=== PATIENT | female | born 1970 | race Caucasian/White ===

== ENCOUNTER 2022-02-28 17:42 | Emergency (ER) | payer OTHER, SELFPAY ==
--- NOTE | ~2022-02-28 | XR_ITS ---
XR elbow LT min 3V 02/28/2022 18:39 INDICATION: Left elbow pain PROCEDURE: 4 views left elbow COMPARISON: No prior studies for comparison. FINDINGS: Fracture, dislocation or subluxation is not identified. No significant joint effusion. Ther e is mild soft tissue swelling dorsal to the elbow. No foreign bodies are identified. IMPRESSION: 1: NO ACUTE BONE OR JOINT ABNORMALITY IDENTIFIED. Reviewed, dictated and finalized at location A.
[2022-02-28 17:52] VITALS: BP 96/63; PULSE 82; RESP 16; TEMP 36.2; O2SAT 99
--- NOTE | 2022-02-28 18:45 | ED.UPPEXIN ---
HPI - Extremity Injury (Upper) General Chief Complaint: Extremity Injury, Upper Stated Complaint: left elbow swelling Time Seen by Provider: 02/28/22 18:45 History of Present Illness HPI narrative: Patient is a 51-year-old female complaining of left elbow swelling x2 weeks. 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 Patient denies any injury to the area. Patient denies any fever or chills. Related Data Home Medications Medication Instructions Recorded Confirmed No Home Medications 09/08/19 09/08/19 Allergies Allergy/AdvReac Type Severity Reaction Status Date / Time midazolam [From Versed] Allergy Unknown Verified 02/28/22 18:37 Review of Systems Review of Systems: Per HPI All systems reviewed & are unremarkable except as noted in HPI and below PMFSH Past Medical History Medical History Left knee pain Lumbar stenosis Family History Family History Unknown Cardiovascular disease Diabetes mellitus Hypertension Social History Social History Smoking packs per day: 1 Smoking cigarettes per day: 20.0 Smoking status: Current every day smoker Alcohol intake: never Exam Const: General: cooperative, healthy appearing, comfortable, no acute distress, well developed, alert and awake; No confusion Orientation/consciousness: oriented to person, oriented to place, oriented to time, patient oriented x3 and No confusion Limitations: no limitations HENMT: Head: normal to inspection, normocephalic and atraumatic Ears: hearing grossly normal bilaterally General nose exam: Normal external nose present, Normal nares present and No nasal discharge present Face and sinus: normal facial exam Mouth: Yes Normal oral and palatal mucosa present and Yes lip normal Eyes: General: appearance normal, both eyes and all related structures Neck: Neck: normal visual inspection Resp: Effort & Inspection: normal respiratory effort, able to speak in complete sentences, no respiratory distress and not tachypneic GI: Inspection: normal to inspection Skin: General skin exam: normal color, no rashes or lesions noted, elasticity normal and turgor normal Neuro: General: oriented to person, oriented to place, oriented to time, patient oriented x3, tone normal, moves all extremities, Normal light touch and pain sensation and No confusion Speech: No Abnormal speech present Sensory Exam: No Sensory deficit (Neuro) Extrem: General: full ROM and capillary refill normal Other: Negative for any deformity. Erythematous, swollen left elbow joint, full range of motion, neurovascular is intact. Psych: Appearance: grossly normal and well kempt Mental Status: mental status grossly normal Speech and movement: Normal speech and movement present Affect: normal affect Attitude: cooperative Thought process: Normal thought process present Thought content: Yes Normal thought content present Insight: Good insight present (Psych) Judgement: Good judgement present (Psych) Course Vital Signs Vital signs: Vital Signs Temperature 36.2 C L 02/28/22 17:52 Pulse Rate 82 02/28/22 17:52 Respiratory Rate 16 02/28/22 17:52 Blood Pressure 96/63 L 02/28/22 17:52 Pulse Oximetry 99 02/28/22 17:52 Oxygen Delivery Room Air 02/28/22 17:52 Temperature 36.2 C L 02/28/22 17:52 Pulse Rate 82 02/28/22 17:52 Respiratory Rate 16 02/28/22 17:52 Blood Pressure 96/63 L 02/28/22 17:52 Pulse Oximetry 99 02/28/22 17:52 Oxygen Delivery Room Air 02/28/22 17:52 Discharge Plan Discharge Clinical Impression: Elbow tendonitis Patient Disposition: Home, Self-Care Condition: Stable Instructions: Tennis Elbow (ED) Additional Instructions: Follow-up with your orthopedic doctor next week Prescriptions: No Actio
[2022-02-28] MEDS: KETOROLAC 30 MG/ML VIAL (*BKC) IM (19:32)
== END 2022-02-28 19:35 | disposition home or self-care (01) ==
LOC: ANHED 19:06
PROVIDERS: Emergency Provider Emergency Medicine; PCP Nurse Practitioner Family
DX: M77.9 Enthesopathy, unspecified (principal); F17.210 Nicotine dependence, cigarettes, uncomplicated
CPT/HCPCS: 73080; 96372; 99283; J1885

== ENCOUNTER 2022-05-28 11:30 | Outpatient (CLI) | payer OTHER, SELFPAY ==
--- NOTE | ~2022-05-28 | XR_ITS ---
XR chest 2V 05/28/2022 11:46 Indication: Dyspnea. Procedure: 2 view chest Comparison: No prior studies for comparison. Findings: Heart size normal. No focal air space disease, pulmonary edema, pleural effusion or suspect ed pneumothorax. There are calcified granulomas of the lung parenchyma. The lungs are hyperinflated w hich is consistent with, but not diagnostic of chronic obstructive pulmonary disease. There are in nu merable bilateral calcified granulomas. Impression: 1: No acute cardiopulmonary disease. Reviewed, dictated and finalized at location A. Impression: 1: No acute cardiopulmonary disease.
== END 2022-05-28 11:31 | disposition home or self-care (01) ==
PROVIDERS: PCP Nurse Practitioner Family; Visit Provider Nurse Practitioner Family
DX: R09.89 Other specified symptoms and signs involving the circulatory and respiratory systems (principal)
CPT/HCPCS: 71046

== ENCOUNTER 2022-07-03 08:34 | Outpatient (CLI) | payer OTHER, SELFPAY ==
--- NOTE | 2022-07-03 | ECHO_ITS ---
Patient Info Name: Deedee Rosenthal Age: 52 years : 1970 Gender: Female Ht: 69 in Wt: 145 lbs BSA: 1.79 m2 HR: 58 bpm BP: 107 / 80 mmHg Heart Rhythm: Sinus Rhythm Exam Date: 07/03/2022 9:17 AM Exam Location: [facility] Pulmonary Patient Status: Outpatient Admit Date: 07/03/2022 Staff Ordering Physician: PablitoGato MD Mock Up Assembler: Miguel Sanchez RDCS Attending Provider: Pablito, Gato Mejia MD Referring Physician: Pablito BARCENAS; Exam Type: CA echo doppler color flow Study Info Indications - dyspnea on exertion Complete two-dimensional, color flow and Doppler transthoracic echocardiogram is performed. Summary 1. Complete two-dimensional, color flow and Doppler transthoracic echocardiogram is performed. 2. Left ventricular systolic function is normal, estimated at 50-55%. 3. The left ventricular diastolic function is grade I diastolic dysfunction. 4. No significant valvular disease. Left Ventricle Left ventricular chamber dimension is normal. Left ventricular systolic function is normal, estimated at 50-55%. There is no increased left ventricular wall thickness. The left ventricular diastolic function is grade I diastolic dysfunction. Right Ventricle Right ventricular chamber dimension is normal. Right ventricular systolic function is normal. Left Atria Left atrial chamber dimension is normal. Right Atria Right atrial chamber dimension is normal. Atrial Septum Intact interatrial septum visualized by color flow imaging. Aortic Valve The aortic valve is not well visualized. There is no aortic valve stenosis. There is no aortic valve regurgitation. Pulmonic Valve The pulmonic valve is not well visualized. Mitral Valve The mitral valve has normal leaflets. There is no mitral valve stenosis. There is no mitral valve regurgitation. Tricuspid Valve The tricuspid valve leaflets are not well visualized. There is no significant tricuspid valve stenosis. There is trace tricuspid valve regurgitation. Pericardium/Pleural There is no pericardial effusion. Inferior Vena Cava Normal inferior vena cava with no collapse upon inspiration consistent with Empty right atrial pressure, Empty. Aorta The aortic root size at the sinus of Valsalva is normal. Left Ventricular Outflow Tract Name Value Normal LVOT 2D LVOT Diameter 2.0 cm LVOT Doppler LVOT Peak Gradient 2 mmHg LVOT Mean Gradient 2 mmHg LVOT VTI 19 cm LVOT VTI/AV VTI Ratio 1.0 LVOT Stroke Volume 57 ml LVOT CO 3.0 l/min LVOT CI 1.7 l/min/m2 Mitral Valve Name Value Normal MV Doppler MV Peak Gradient 2 mmHg
--- NOTE | 2022-07-03 | EST_ITS ---
Patient Info Name: Deedee Rosenthal Age: 52 years : 1970 Gender: Female Ht: 69 in Wt: 150 lbs BSA: 1.82 m2 Exam Date: 07/03/2022 11:55 AM Exam Location: [facility] Stress Patient Status: Outpatient Admit Date: 07/03/2022 Staff Ordering Physician: Nathan, Gato Mejia MD Attending Provider: Nathan, Gato Mejia MD Exercise Technologist: Mireya Wallis RDCS Nurse: JIMMY ADAMS NP Exam Type: CA stress balbir w NM Study Info Indications R07.9 - Chest pain, unspecified R06.09 - Other forms of dyspnea A regadenoson stress test was performed. Summary 1. T-wave inversions in the inferolateral leads with Lexiscan. No ST segment depressions. 2. Please correlate with nuclear medicine images, reported separately. Protocol: Lexiscan Stress ECG Details Stage: REST Duration (min): 0 min : 40 sec HR (bpm): 58 SBP (mmHg): 108 DBP (mmHg): 79 Stage: REST Duration (min): 10 min : 20 sec HR (bpm): 55 SBP (mmHg): 108 DBP (mmHg): 79 Stage: STAGE 1 Duration (min): 1 min : 0 sec HR (bpm): 76 SBP (mmHg): 108 DBP (mmHg): 79 Stage: RECOVERY Duration (min): 1 min : 0 sec HR (bpm): 83 SBP (mmHg): 125 DBP (mmHg): 87 Stage: RECOVERY Duration (min): 2 min : 0 sec HR (bpm): 78 SBP (mmHg): 118 DBP (mmHg): 85 Stage: RECOVERY Duration (min): 3 min : 0 sec HR (bpm): 81 SBP (mmHg): 125 DBP (mmHg): 82 Stage: RECOVERY Duration (min): 3 min : 13 sec HR (bpm): 78 SBP (mmHg): 125 DBP (mmHg): 82 Rest HR: 55 bpm Peak HR: 87 bpm Rest Sys BP: 108 mmHg Peak Sys BP: 125 mmHg Max Pred HR: 170 bpm % Max Pred HR: 51 % Target HR: 145 bpm Max RPP: 10,875 bpm*mmHg BP Response: Normal blood pressure response Total Time: 1 min : 0 sec Rest Morales BP: 79 mmHg Peak Morales BP: 87 mmHg Total Dose: 0.4 mg Resting ECG Sinus bradycardia. Stress ECG Sinus rhythm. T-wave inversions in the inferolateral leads with Lexiscan. No ST segment depressions. Arrhythmias None. Report Signatures
--- NOTE | ~2022-07-03 | NM_ITS ---
EXAMINATION: NM balbir stress w perfusion DATE: 07/03/2022 13:01 INDICATION: Chest pain. TECHNIQUE: Rest images were obtained following intravenous administration of 9.49 mCi Tc99m tetrofosm in (Myoview). The patient was infused intravenously with Lexiscan (regadenoson). Then, 28.3 mCi Tc99m tetrofosmin (Myoview) was administered intravenously, and stress images were obtained. Data was bill nstructed into short axis and horizontal and vertical long axis SPECT images. Gated SPECT images were also obtained. COMPARISON: None. FINDINGS: There is no definite reversible or fixed perfusion abnormality to suggest ischemia or infar ction. There is no segmental wall motion abnormality. Left ventricular ejection fraction measures 5 4%. IMPRESSION: 1. No definite ischemia or infarct. 2. Normal left ventricular ejection fraction measuring 54%. Reviewed, dictated and finalized at location A.
== END 2022-07-03 08:35 | disposition home or self-care (01) ==
PROVIDERS: PCP Nurse Practitioner Family; Visit Provider Internal Medicine Cardiovascular Disease
DX: R07.9 Chest pain, unspecified (principal); R06.09 Other forms of dyspnea
CPT/HCPCS: 78452; 93017; 93306; A9502; J2785

== ENCOUNTER 2022-07-30 18:38 | Emergency (ER) | payer OTHER, SELFPAY ==
[2022-07-30 18:47] VITALS: BP 107/78; PULSE 62; RESP 16; TEMP 35.6; O2SAT 99
--- NOTE | 2022-07-30 18:52 | ED_ITS ---
HPI - Ear Problem General Stated complaint: Fatique, Oral Pain Related Data Home Medications Medication Instructions Recorded Confirmed No Home Medications 09/08/19 09/08/19 Allergies Allergy/AdvReac Type Severity Reaction Status Date / Time midazolam [From Versed] Allergy Unknown Verified 02/28/22 18:37 [facility] Past Medical History Medical History Left knee pain Lumbar stenosis Family History Family History Unknown Cardiovascular disease Diabetes mellitus Hypertension Social History Social History Smoking packs per day: 1 Smoking cigarettes per day: 20.0 Smoking status: Current every day smoker Alcohol intake: never Course Vital Signs Vital signs: Vital Signs Temperature 35.6 C L 07/30/22 18:47 Pulse Rate 62 07/30/22 18:47 Respiratory Rate 16 07/30/22 18:47 Blood Pressure 107/78 07/30/22 18:47 Pulse Oximetry 99 07/30/22 18:47 Oxygen Delivery Room Air 07/30/22 18:47 Temperature 35.6 C L 07/30/22 18:47 Pulse Rate 62 07/30/22 18:47 Respiratory Rate 16 07/30/22 18:47 Blood Pressure 107/78 07/30/22 18:47 Pulse Oximetry 99 07/30/22 18:47 Oxygen Delivery Room Air 07/30/22 18:47 Medical Decision Making Vital Signs Vital Signs: Vital Signs Temperature 35.6 C L 07/30/22 18:47 Pulse Rate 62 07/30/22 18:47 Respiratory Rate 16 07/30/22 18:47 Blood Pressure 107/78 07/30/22 18:47 Pulse Oximetry 99 07/30/22 18:47 Oxygen Delivery Room Air 07/30/22 18:47 Temperature 35.6 C L 07/30/22 18:47 Pulse Rate 62 07/30/22 18:47 Respiratory Rate 16 07/30/22 18:47 Blood Pressure 107/78 07/30/22 18:47 Pulse Oximetry 99 07/30/22 18:47 Oxygen Delivery Room Air 07/30/22 18:47 Discharge Plan Discharge Prescriptions: No Action No Home Medications Follow-up/Referrals: Ren,Uriel, CERTIFIED APPLIANCE SERVICE TECHNICIAN [Primary Care Provider] -
--- NOTE | 2022-07-30 18:53 | ED.DENTAL ---
HPI - Dental/Oral General Chief complaint: Upper Respiratory Infection Stated complaint: Fatique, Oral Pain Time Seen by Provider: 07/30/22 18:55 Source: patient Mode of arrival: ambulatory Limitations: no limitations History of Present Illness HPI Narrative: This knee will is a 52-year-old female patient presenting to the clinic today with complaints of fatigue, film in mouth, sinus drainage, diarrhea, and abdominal discomfort. She also states that she has felt feverish. Symptoms began around Thursday to Thursday. States she took a COVID test when symptoms began and that was negative. Related Data Home Medications Medication Instructions Recorded Confirmed No Home Medications 09/08/19 07/30/22 Allergies Allergy/AdvReac Type Severity Reaction Status Date / Time midazolam [From Versed] Allergy Unknown Verified 07/30/22 19:00 Review of Systems Review of Systems: Pertinent positives per HPI. Patient denies any fever, chills, rash, headache, visual changes, dizziness, cough, shortness of breath, chest pain, palpitations, nausea, vomiting, diarrhea, constipation, abdominal pain, or any urinary issues. PMFSH Past Medical History Medical History Left knee pain Lumbar stenosis Family History Family History Unknown Cardiovascular disease Diabetes mellitus Hypertension Social History Social History Smoking packs per day: 1 Smoking cigarettes per day: 20.0 Smoking status: Current every day smoker Alcohol intake: never Comments At the time of my signature, I reviewed and agree with the nursing past medical, surgical, social, and family history. There is no relevant family history pertinent to the patient complaint. Exam Narrative: General: Well-developed, well nourished, in no apparent distress Head: Normocephalic, atraumatic Eyes: Pupils equally round and reactive to light bilaterally, EOM intact, sclera and conjunctive clear, no discharge, lids normal Ears: TMs intact and clear, ear canals clear, no drainage, grossly hearing normal. Nose: Nares patent, clear nasal discharge, no inflammation, no sinus tenderness. Mouth: Oral pharynx without lesions or masses, good dentition, MMM. PND Neck: Supple, trachea midline, no enlargement of anterior or posterior cervical nodes, no thyroid masses or goiter palpable. Cardio: Regular rate and rhythm, s1 and s2 normal, no murmur appreciated. Resp: Clear to auscultation bilaterally, no rhonchi, rales, wheezing or rubs Course Course Emergency Course: Portions of this record may have been created with voice recognition software. Level of Care: Express Care Visit Vital Signs Vital signs: Vital Signs Temperature 35.6 C L 07/30/22 18:47 Pulse Rate 62 07/30/22 18:47 Respiratory Rate 16 07/30/22 18:47 Blood Pressure 107/78 07/30/22 18:47 Pulse Oximetry 99 07/30/22 18:47 Oxygen Delivery Room Air 07/30/22 18:47 Temperature 35.6 C L 07/30/22 18:47 Pulse Rate 62 07/30/22 18:47 Respiratory Rate 16 07/30/22 18:47 Blood Pressure 107/78 07/30/22 18:47 Pulse Oximetry 99 07/30/22 18:47 Oxygen Delivery Room Air 07/30/22 18:47 Vital signs reviewed MDM - Dental/Oral MDM Narrative Medical decision making narrative: At the time of visit patient is resting comfortably on the exam table. COVID and influenza testing was completed in the clinic and that was positive for COVID and influenza A. Supportive measures were discussed with the patient she voiced understanding of discharge instructions agrees to treatment plan. She is on day 4 of symptoms without any comorbidities so I do not feel as though she is appropriate for antiviral treatment at this time Differential Diagnosis Differential diagnosis: Likely other ( COVID, flu, upper respiratory
== END 2022-07-30 19:47 | disposition home or self-care (01) ==
PROVIDERS: Emergency Provider Nurse Practitioner Family; PCP Nurse Practitioner Family
DX: U07.1 COVID-19 (principal); J10.1 Influenza due to other identified influenza virus with other respiratory manifestations; F17.210 Nicotine dependence, cigarettes, uncomplicated
CPT/HCPCS: 87426; 87804; 99213; C9803; G0463

== ENCOUNTER 2022-09-03 17:55 | Emergency (ER) | payer OTHER, SELFPAY ==
--- NOTE | 2022-09-03 18:00 | ED.FEMALEGU ---
HPI - Female Genitourinary General Chief complaint: Urogenital-Female Stated complaint: URINARY URGENCY/PAIN Time Seen by Provider: 09/03/22 18:10 Source: patient and RN notes reviewed Mode of arrival: ambulatory Limitations: no limitations History of Present Illness HPI Narrative: 52-year-old female presents concern for 2-3 day history of foul-smelling urine, bloating, low back pain. She reports a history of BV and is not sure if this is related BV or urinary tract infection. She denies fever, aches, chills, sweats, nausea, vomiting. MD elicited complaint: other (Malodorous urine/vaginal discharge) Related Data Allergies Allergy/AdvReac Type Severity Reaction Status Date / Time acetaminophen Allergy Unknown Verified 09/03/22 18:12 [From Darvocet-N] codeine Allergy Unknown Verified 09/03/22 18:12 meloxicam [From Mobic] Allergy Unknown Verified 09/03/22 18:12 midazolam [From Versed] Allergy Unknown Verified 07/30/22 19:00 propoxyphene Allergy Unknown Verified 09/03/22 18:12 [From Darvocet-N] Review of Systems Review of Systems: CONSTITUTIONAL: Denies malaise, chills, sweats, or fever. CARDIOVASCULAR: Denies chest pain, palpitations, or edema. RESPIRATORY: Denies cough or dyspnea. GASTROINTESTINAL: Denies abdominal pain, nausea, vomiting, diarrhea GENITOURINARY: Denies dysuria, frequency,suprapubic pressure. Denies flank pain or hematuria. Reports foul-smelling urine, urinary urgency, bloating SKIN: Denies rash or itching. MUSCULOSKELETAL: Reports lower back pain. Denies myalgia. All systems reviewed & are unremarkable except as noted in HPI and below PMFSH Past Medical History Medical History Left knee pain Lumbar stenosis Family History Family History Unknown Cardiovascular disease Diabetes mellitus Hypertension Social History Social History Smoking packs per day: 1 Smoking cigarettes per day: 20.0 Smoking status: Current every day smoker Alcohol intake: never Comments At time of signature, agree with nursing past medical, surgical, social and family history. There is no relevant family history pertinent to the presenting complaint Exam Narrative: GENERAL: Well-appearing, well-nourished, and in no acute distress. HEAD: Normocephalic. EYES: PERRLA, conjunctivae clear. NECK: Supple. No lymphadenopathy CHEST: Clear to auscultation. No respiratory distress. HEART: Regular rate and rhythm. ABDOMEN: Soft, nontender upon palpation, nondistended, normal active bowel sounds, no palpable or pulsatile masses, no guarding. No CVA tenderness SKIN: Warm, dry, no rash. NEURO: Alert and oriented x3. PSYCH: Normal mood and affect Course Course Emergency Course: Patient is aware of diagnosis, understands and agrees to treatment plan. Anticipatory guidance given. Patient agrees to follow-up as directed and is aware of reasons to seek care at the emergency department. Portions of this record may have been created with voice recognition software Level of Care: Express Care Visit Vital Signs Vital signs: Reviewed. MDM - Female Genitourinary MDM Narrative Medical decision making narrative: Exam findings and UA show no acute concerns or changes; patient is non-toxic appearing and is in no distress. Patient would not like to do a pelvic exam at this time, reports she gets BV all the time and she would just like to be treated. Discussed any urine for cultures to rule out urinary tract infection. Patient is agreeable to treatment plan. Patient is appropriate for outpatient treatment and follow-up. Differential Diagnosis Differential diagnosis: Likely urinary tract infection and cystitis Critical Care Time Critical Care Time Critical Care Time: No Discharge Plan Discharge Clinical Impression: Malodorous
[2022-09-03 18:09] VITALS: BP 109/79; PULSE 73; RESP 16; TEMP 36.3; O2SAT 99
== END 2022-09-03 18:28 | disposition home or self-care (01) ==
PROVIDERS: Emergency Provider Nurse Practitioner; PCP Nurse Practitioner Family
DX: R82.998 Other abnormal findings in urine (principal); B95.2 Enterococcus as the cause of diseases classified elsewhere; F17.210 Nicotine dependence, cigarettes, uncomplicated; M48.061 Spinal stenosis, lumbar region without neurogenic claudication
CPT/HCPCS: 81003; 87086; 87147; 87181; 87186; 99213; G0463